=== PATIENT | female | born 1985 | race African-American/Black ===

== ENCOUNTER 2025-04-25 23:17 | Emergency (ER) | payer OTHER ==
[2025-04-25 23:25] VITALS: PULSE 115; RESP 20; O2SAT 100
[2025-04-26] MEDS: DEXAMETHASONE 10 MG/ML VIAL IM ONE (00:38)
[2025-04-26] MEDS: DIPHENHYDRAMINE 25MG CAPSULE PO ONE (00:39)
[2025-04-26] MEDS: FAMOTIDINE 20MG TABLET PO ONE (00:39)
[2025-04-26] MEDS ORDERED: PRED5TAB48 MT (01:22)
== END 2025-04-26 01:38 | disposition home or self-care (01) ==
LOC: ER 23:17
DX: S40.869A Insect bite (nonvenomous) of unspecified upper arm, initial encounter (principal); L29.9 Pruritus, unspecified; X58.XXXA Exposure to other specified factors, initial encounter; Y93.89 Activity, other specified; Y92.89 Other specified places as the place of occurrence of the external cause; Y99.8 Other external cause status
CPT/HCPCS: 99283; 96372; Q0163; J1100